=== PATIENT | female | born 1990 | race Two or more races ===

== ENCOUNTER 2023-03-15 12:52 | Outpatient (REF) | payer MEDICAID, OTHER, SELFPAY ==
[2023-03-15 16:13] LABS: MANUAL DIFF FLAG NO
[2023-03-15 16:26] LABS: Basophils Percent Auto 0.5 % (0-2); Eosinophils Absolute Auto 0.1 X10*3/uL (0.0-0.4); Eosinophils Percent Auto 1.6 % (0-4); Hematocrit 42.9 % (37.0-47.0); Hemoglobin 13.9 g/dl (12.0-16.0); Imm Gran Abs Auto 0.03 X10*3/uL (0.00-0.03); Imm Gran Pct Auto 0.5 % (0.0-0.4); Lymphocytes Absolute Auto 2.9 X10*3/uL (1.2-4.9); Lymphocytes Percent Auto 46.9 % (20-40); Mean Corpuscular HGB Conc 32.4 g/dl (31.0-35.0); Mean Corpuscular Hemoglobin 30.3 pg (27.0-33.0); Mean Corpuscular Volume 93.5 fL (80.0-98.0); Monocytes Absolute Auto 0.6 X10*3/uL (0.1-1.2); Neutrophils Absolute Auto 2.6 x10*3/uL (2.0-8.3); Neutrophils Percent Auto 41.5 % (45-73); Platelet Count 287 X10*3/uL (160-400); Red Blood Count 4.59 X10*6/uL (4.20-5.50); Red Cell Distribution Width 11.4 % (11.0-16.0); White Blood Count 6.2 X10*3/uL (4.8-10.8)
[2023-03-15 17:07] LABS: TSH reflex Free T4 0.74 uIU/mL (0.32-4.0)
[2023-03-15 17:09] LABS: Alanine Aminotransferase 36 U/L (0-31); Albumin Level 4.5 g/dL (3.5-5.0); Alkaline Phosphatase 77 U/L (39-117); Anion Gap 12 (12-20); Aspartate Amino Transferase 37 U/L (5-31); Bilirubin Total 0.6 mg/dL (0.0-1.0); Blood Urea Nitrogen 16 mg/dL (9-16); Calcium 9.6 mg/dL (8.4-10.2); Carbon Dioxide 24 mmol/L (22-29); Chloride 107 mmol/L (96-108); Estimated Glomerular Filt Rate > 60; Glucose Random 78 mg/dL (60-115); Potassium 3.9 mmol/L (3.3-5.1); Sodium 139 mmol/L (135-145); Total Protein 7.6 g/dL (6.5-8.0)
[2023-03-15 17:26] LABS: HCG Quantitative < 2 mIU/mL; Vitamin B12 794 pg/mL (200-900)
[2023-03-15 18:35] LABS: CT PCR NOT DETECTED (Not Detect.); NG PCR NOT DETECTED (Not Detect.)
[2023-03-16 08:56] LABS: HBS Num1 0.03 mIU/mL (0-7.99); HBc Num1 0.11 S/CO (0.00-0.79); HBsAGNum1 0.37 S/CO (0.00-0.99); Hepatitis B Core Antibody Nonreactive (Nonreactive); Hepatitis B Surface Antigen Negative (Negative); ~Hepatitis B Surface Antibody NONREACTIVE (Nonreactive)
== END 2023-03-15 12:53 | disposition home or self-care (01) ==
LOC: HO.HHCL 12:52
PROVIDERS: Visit Provider Student in an Organized Health Care Education/Training Program
DX: Z00.00 Encounter for general adult medical examination without abnormal findings (principal); Z11.3 Encounter for screening for infections with a predominantly sexual mode of transmission
CPT/HCPCS: 0353U; 80053; 82607; 82746; 84443; 84702; 85025; 86704; 86706; 87340

== ENCOUNTER 2023-03-15 13:20 | Outpatient (REF) | payer MEDICAID, OTHER, SELFPAY ==
--- NOTE | ~2023-03-15 | XR_ITS ---
EXAMINATION: XR CHEST CLINICAL INFORMATION: Positive tuberculosis test. COMPARISON: None available. TECHNIQUE: 2 views of the chest were obtained. FINDINGS: The lungs are well expanded. No focal consolidation. No pleural effusion. Cardiac silhouette is within normal limits. XR/XR chest 2V IMPRESSION: No acute abnormality.
== END 2023-03-15 13:21 | disposition home or self-care (01) ==
LOC: HO.HHCX 13:20
PROVIDERS: Visit Provider Registered Nurse
DX: R76.12 Nonspecific reaction to cell mediated immunity measurement of gamma interferon antigen response without active tuberculosis (principal)
CPT/HCPCS: 71046

== ENCOUNTER 2023-03-28 09:43 | Outpatient (REF) | payer MEDICAID, OTHER, SELFPAY ==
[2023-03-31 06:44] LABS: TS Negative Control Passed; TS Panel A 3; TS Panel B 4; TS Positive Control Passed; TSpotTB Negative (Negative)
== END 2023-03-28 09:44 | disposition home or self-care (01) ==
LOC: HO.LAB 09:43
PROVIDERS: PCP Student in an Organized Health Care Education/Training Program; Visit Provider Student in an Organized Health Care Education/Training Program
DX: Z00.00 Encounter for general adult medical examination without abnormal findings (principal)
CPT/HCPCS: 36415; 86481

== ENCOUNTER 2023-04-11 07:59 | Outpatient (REF) | payer MEDICAID, OTHER, SELFPAY ==
--- NOTE | 2023-04-11 | EMG_ITS ---
Please see scanned EMG / Nerve Conduction Report. MTDD
== END 2023-04-11 08:00 | disposition home or self-care (01) ==
LOC: HO.NEURO 07:59
PROVIDERS: PCP Student in an Organized Health Care Education/Training Program; Visit Provider Registered Nurse
DX: R20.0 Anesthesia of skin (principal); R20.2 Paresthesia of skin
CPT/HCPCS: 95860; 95885; 95907; 95913

== ENCOUNTER 2023-05-30 19:18 | Outpatient (REF) | payer MEDICAID, OTHER, SELFPAY | END 2023-05-30 19:19 | disposition home or self-care (01) | LOC: HO.HHCLNP 19:18 | PROVIDERS: Visit Provider Advanced Practice Midwife | DX: Z12.4 Encounter for screening for malignant neoplasm of cervix (principal); Z11.51 Encounter for screening for human papillomavirus (HPV) | CPT/HCPCS: 87624; 88142 ==

== ENCOUNTER 2023-08-15 09:37 | Outpatient (REF) | payer MEDICAID, OTHER, SELFPAY ==
[2023-08-15 11:18] LABS: MANUAL DIFF FLAG NO
[2023-08-15 11:47] LABS: Basophils Percent Auto 0.6 % (0-2); Eosinophils Absolute Auto 0.1 X10*3/uL (0.0-0.4); Eosinophils Percent Auto 1.8 % (0-4); Hematocrit 42.7 % (37.0-47.0); Imm Gran Abs Auto 0.01 X10*3/uL (0.00-0.03); Imm Gran Pct Auto 0.2 % (0.0-0.4); Lymphocytes Absolute Auto 2.5 X10*3/uL (1.2-4.9); Lymphocytes Percent Auto 50.5 % (20-40); Mean Corpuscular HGB Conc 32.8 g/dl (31.0-35.0); Mean Corpuscular Hemoglobin 30.2 pg (27.0-33.0); Mean Corpuscular Volume 92.2 fL (80.0-98.0); Mean Platelet Volume 8.9 fL (9.4-12.3); Monocytes Absolute Auto 0.5 X10*3/uL (0.1-1.2); Monocytes Percent Auto 10.8 % (2-11); Neutrophils Absolute Auto 1.8 x10*3/uL (2.0-8.3); Neutrophils Percent Auto 36.1 % (45-73); Platelet Count 273 X10*3/uL (160-400); Red Blood Count 4.63 X10*6/uL (4.20-5.50); Red Cell Distribution Width 11.4 % (11.0-16.0)
[2023-08-15 12:12] LABS: Alanine Aminotransferase 37 U/L (0-31); Albumin Level 4.4 g/dL (3.5-5.0); Alkaline Phosphatase 90 U/L (39-117); Anion Gap 12 (12-20); Aspartate Amino Transferase 27 U/L (5-31); Bilirubin Total 0.5 mg/dL (0.0-1.0); Blood Urea Nitrogen 11 mg/dL (9-16); Calcium 9.7 mg/dL (8.4-10.2); Carbon Dioxide 26 mmol/L (22-29); Chloride 105 mmol/L (96-108); Estimated Glomerular Filt Rate > 60; Glucose Random 108 mg/dL (60-115); Potassium 4.4 mmol/L (3.3-5.1); Sodium 139 mmol/L (135-145); Total Protein 7.7 g/dL (6.5-8.0)
== END 2023-08-15 09:38 | disposition home or self-care (01) ==
LOC: HO.HHCL 09:37
PROVIDERS: Visit Provider Student in an Organized Health Care Education/Training Program
DX: Z00.00 Encounter for general adult medical examination without abnormal findings (principal)
CPT/HCPCS: 36415; 80053; 85025

== ENCOUNTER 2024-03-19 18:41 | Outpatient (REF) | payer MEDICAID, OTHER, SELFPAY ==
[2024-03-20 16:40] LABS: H Pylori Breath Test Negative (Negative)
== END 2024-03-19 18:42 | disposition home or self-care (01) ==
LOC: HO.HHCLNP 18:41
PROVIDERS: Visit Provider Student in an Organized Health Care Education/Training Program
DX: K29.50 Unspecified chronic gastritis without bleeding (principal)
CPT/HCPCS: 83013

== ENCOUNTER 2024-04-29 09:36 | Outpatient (REF) | payer MEDICAID, OTHER, SELFPAY ==
[2024-04-29 11:37] LABS: Hematocrit 38.2 % (37.0-47.0); Hemoglobin 12.8 g/dl (12.0-16.0); Mean Corpuscular HGB Conc 33.5 g/dl (31.0-35.0); Mean Corpuscular Hemoglobin 30.9 pg (27.0-33.0); Mean Corpuscular Volume 92.3 fL (80.0-98.0); Mean Platelet Volume 8.8 fL (9.4-12.3); Platelet Count 287 X10*3/uL (160-400); Red Blood Count 4.14 X10*6/uL (4.20-5.50); Red Cell Distribution Width 11.9 % (11.0-16.0)
[2024-04-29 11:43] LABS: Estimated Average Glucose 108 mg/dL; Hemoglobin A1c % 5.4 % (<6.0)
[2024-04-29 11:55] LABS: Alanine Aminotransferase 16 U/L (0-31); Albumin Level 4.2 g/dL (3.5-5.0); Alkaline Phosphatase 71 U/L (39-117); Anion Gap 10 (12-20); Aspartate Amino Transferase 16 U/L (5-31); Bilirubin Total 0.4 mg/dL (0.0-1.0); Blood Urea Nitrogen 8 mg/dL (9-16); Calcium 9.5 mg/dL (8.4-10.2); Carbon Dioxide 24 mmol/L (22-29); Chloride 106 mmol/L (96-108); Cholesterol 156 mg/dL (<200); Estimated Glomerular Filt Rate > 60; Glucose Random 98 mg/dL (60-115); HDL Cholesterol 44 mg/dL (>40); LDL Cholesterol Calculated 99 mg/dL (<100); Sodium 136 mmol/L (135-145); Total Protein 7.2 g/dL (6.5-8.0); Triglycerides 68 mg/dL (<150)
[2024-04-29 12:16] LABS: HBS Num1 > 1000.00 mIU/mL (0-7.99); HBc Num1 0.19 S/CO (0.00-0.79); HBsAGNum1 0.26 S/CO (0.00-0.99); HIV AB/AG Nonreactive (Nonreactive); HIV Num 1 0.07 S/CO (0.00-0.99); Hepatitis B Core Antibody Nonreactive (Nonreactive); Hepatitis B Surface Antigen Negative (Negative); ~HepC Num1 0.09 S/CO (0.00-0.79); ~Hepatitis B Surface Antibody REACTIVE (Nonreactive); ~Hepatitis C Antibody Nonreactive (Nonreactive)
[2024-04-29 12:26] LABS: Syphilis Screen Nonreactive (Nonreactive); TSH reflex Free T4 0.35 uIU/mL (0.32-4.0)
[2024-04-29 13:13] LABS: CT PCR NOT DETECTED (Not Detect.); NG PCR NOT DETECTED (Not Detect.)
== END 2024-04-29 09:37 | disposition home or self-care (01) ==
LOC: HO.HHCL 09:36
PROVIDERS: Visit Provider Student in an Organized Health Care Education/Training Program
DX: Z00.00 Encounter for general adult medical examination without abnormal findings (principal)
CPT/HCPCS: 36415; 80053; 80061; 83036; 84443; 84702; 85027; 86704; 86706; 86780; 86803; 87340; 87389; 87491; 87591

== ENCOUNTER 2024-05-12 14:16 | Outpatient (REF) | payer MEDICAID, OTHER, SELFPAY ==
[2024-05-13 04:36] LABS: CT PCR NOT DETECTED (Not Detect.); NG PCR NOT DETECTED (Not Detect.)
[2024-05-13 11:24] LABS: Bacterial Vaginosis PCR NEGATIVE (Negative); Candida Group PCR DETECTED (Not Detect); Candida glab krusei PCR NOT DETECTED (Not Detect); Trichomonas vaginalis PCR NOT DETECTED (Not Detect)
== END 2024-05-12 14:17 | disposition home or self-care (01) ==
LOC: HO.HHCLNP 14:16
PROVIDERS: Visit Provider Internal Medicine
DX: R10.2 Pelvic and perineal pain (principal)
CPT/HCPCS: 0352U; 87491; 87591

== ENCOUNTER 2025-04-21 10:22 | Outpatient (REF) | payer MEDICAID, SELFPAY ==
--- OUTSIDE RECORDS SUMMARY | 2025-04-21 11:09 | XMS_ITS | Encounter Summary ---
Author Organization [employer] Address [address] [facility] 7 [place] [address] Care Team Providers Care Floor Representative Name Role Phone Laurie Strickland MD Primary Care Pro vider Reason for Visit * Reason Comments Med Refill Encounter Details Date Type Department Care Team ([facility] st Contact Info) Description 08/03/2024 Refill [facility] [address] [place], [place] [phone] Shannan Guzman MD [address] [place] [address] Social History Tobacco Use Types Packs/Day Years Used Date Smoking Tobacco: Never Passive Smoke Exposure: Never Smokeless Tobacco: Never Alcohol Use Standard Drinks/Week Comments Not Currently 0 (1 standard drink = 0.6 oz pur e alcohol) Depression Answer Date Recorded Patient Health Questionnaire-9 Score 5 05/10/2023 Housing Stability Answer Date Recorded What is your housing situation today? I do not have housing (Staying with others, in a hotel, in a detention, living outside on the street, on a beach, in a car, or in a park 06/04/[address] you li ve. Do you have problems with any of the following? I am not sure 06/04/2023 Food Insecurity Answer Date Recorded Within the past 12 months, y ou worried that your food would run out before you got money to buy more: Often true 06/19/2023 Within the past 12 months,th e food you bought just didn't last and you didn't have enough money to get more: Often true Transportation Answer Date Recorded In the past 12 months, has l ack of transportation kept you from medical appts, meetings, work or from getting things needed for daily living? No 06/19/2023 Utilities Answer Date Recorded In the past 12 months, has t he electric, gas, oil or water company threatened to shut off services in your home? I am not sure 06/19/2023 Depression Answer Date Recorded Patient Health Questionnaire-2 Score 1 05/10/2023 Comments Yes Sex and Gender Information Value Date Recorded Sex Assigned at Female 01/24/2023 2:17 PM EDT Legal Sex Female 2:13 PM EDT Gender Identity Female 01/24/2023 2:17 PM EDT Sexual Orientation Straight 03/15/2023 11 :11 AM EDT documented as of this encounter Plan of Treatment Upcoming Encounters Date Type Department Care Team (Late st Contact Info) Description 05/08/2025 10:00 AM EDT Office Visit [facility] [address] [place] [address] Laurie Strickland MD [address] [place] [address] 05/18/2025 9:00 AM EDT Clinical Support [facility] DIABETES/NUTRITION [address] [place] [address] Angela Yusuf, RD [address] [place] [address] 07/10/2025 10:30 AM EST Office Visit [facility] OPTOMETRY [address] [place] [address] Sandor, Nichole, OD [address] [place] [address] documented as of this encounter Visit Diagnoses Not on filedocumented in this encounter Additional Health Concerns Assessment Noted Time PHQ-9 Depression Total Score: 5 05/10/20 23 3:48 PM EDT documented as of this encounter Care Teams Floor Representative Relationship Specialty Start Date End Date Laurie Strickland MD [address] [place] [address] PCP - General Internal Medicine 03/15/23 documented as of this encounter
--- OUTSIDE RECORDS SUMMARY | 2025-04-21 11:09 | XMS_ITS | Encounter Summary ---
Author Organization [employer] Address [address] [place] [address] [place] [address] Care Team Providers Care Information Technology Security Manager Name Role Phone Laurie Strickland MD Primary Care Pro vider Reason for Visit * Reason Onset Date Comments Appointment Request 02/24/2025 Encounter Details Date Type Department Care Team ([facility] st Contact Info) Description 02/24/2025 Telephone [facility] [address] [place], [place] [phone] Laurie Strickland MD [address] [place] [address] Appointment Request Social History Tobacco Use Types Packs/Day Years Used Date Smoking Tobacco: Never Passive Smoke Exposure: Never Smokeless Tobacco: Never Alcohol Use Standard Drinks/Week Comments Not Currently 0 (1 standard drink = 0.6 oz pur e alcohol) Depression Answer Date Recorded Patient Health Questionnaire-9 Score 5 05/10/2023 Housing Stability Answer Date Recorded What is your housing situation today? I have car mobley 11/19/[address] you li ve. Do you have problems with any of the following? None of the above 11/19/2024 Food Insecurity Answer Date Recorded Within the past 12 months, y ou worried that your food would run out before you got money to buy more: Never True 11/19/2024 Within the past 12 months,th e food you bought just didn't last and you didn't have enough money to get more: Never True Transportation Answer Date Recorded In the past 12 months, has l ack of transportation kept you from medical appts, meetings, work or from getting things needed for daily living? Yes, it has kept me from medical appointments or getting medications. 11/19/2024 Utilities Answer Date Recorded In the past 12 months, has t he electric, gas, oil or water company threatened to shut off services in your home? No 11/19/2024 Depression Answer Date Recorded Patient Health Questionnaire-2 Score 1 05/10/2023 Internet Access Answer Date Recorded Internet Access Q1 Yes 11/19/2024 Internet Access Q2 Not on file 11/19/2024 Comments No Sex and Gender Information Value Date Recorded Sex Assigned at Female 01/24/2023 2:17 PM EDT Legal Sex Female 2:13 PM EDT Gender Identity Female 01/24/2023 2:17 PM EDT Sexual Orientation Straight 03/15/2023 11 :11 AM EDT documented as of this encounter Miscellaneous Notes * Telephone Encounter - Luke Vu - 02/24/2025 10:16 AM EDT TC from pt looking to schedule Pharmacist Critical Care visit documented in this encounter Plan of Treatment Upcoming Encounters Date Type Department Care Team (Late st Contact Info) Description 05/08/2025 10:00 AM EDT Office Visit [facility] [address] [place] [address] Laurie Strickland MD [address] [place] [address] 05/18/2025 9:00 AM EDT Clinical Support [facility] DIABETES/NUTRITION [address] [place] [address] Angela Yusuf, RD [address] [place] [address] 07/10/2025 10:30 AM EST Office Visit [facility] OPTOMETRY [address] [place] [address] Nichole Patten, OD [address] [place] [address] documented as of this encounter Visit Diagnoses Not on filedocumented in this encounter Additional Health Concerns Assessment Noted Time PHQ-9 Depression Total Score: 5 05/10/20 3:48 PM EDT documented as of this encounter Care Teams Information Technology Security Manager Relationship Specialty Start Date End Date Laurie Strickland MD [address] [place] [id number] PCP - General Internal Medicine 03/15/23 documented as of this encounter
--- OUTSIDE RECORDS SUMMARY | 2025-04-21 11:09 | XMS_ITS | Encounter Summary ---
Author Organization [employer] Address [address] [facility] 7t [place] [address] Care Team Providers Care Washer Meat Name Role Phone Laurie Strickland MD Primary Care Pro vider Encounter Details Date Type Department Care Team (Late st Contact Info) Description 10/22/2024 Orders Only [facility] [address] [place] [phone] Manjit Orr MD [address] [place], [place] [phone] Social History Tobacco Use Types Packs/Day Years [...] with others, in a hotel, in a senior living, living outside on the street, on a [...] Description 05/08/2025 10:00 AM EDT Office Visit [facility] MED[facility] [address] [place] [address] Laurie Strickland MD [address] [place] [address] 05/18/2025 9:00 AM EDT Clinical Support [facility] DIABETES/NUTRITION [address] [place] [address] [place] [address] 07/10/2025 10:30 AM EST Office Visit [facility] OPTOMETRY [address] [place] [address] Nichole Patten, OD [address] [place] [address] documented as of this encounter Visit Diagnoses Not on filedocumented in this encounter Additional Health Concerns Assessment Noted Time PHQ-9 Depression Total Score: 5 05/10/20 3:48 PM EDT documented as of this encounter Care Teams Washer Meat Relationship Specialty Start Date End Date Laurie Strickland MD [address] [place] [address] PCP - General Internal Medicine 03/15/23 documented as of this encounter
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
--- OUTSIDE RECORDS SUMMARY | 2025-04-21 11:09 | XMS_ITS | Clinical Summary ---
Author Organization [facility] Address [address] [place] [address] Care Team Providers Care Logistics Supply Officer Name Role Phone Laurie Strickland Primary Care Provider [phone]- [phone] Allergies No known active allergies Medications No known medications Social History Tobacco Use Types Packs/Day Years Used Date Smoking Tobacco: Never Smokeless Tobacco: Never Tobacco Cessation:Counseling Given: Not Answered Comments Unknown Sex and Gender Information Value Date Recorded Sex Assigned at Female 05/19/2024 10:44 AM EDT Legal Sex Female 3:43 PM EST Gender Identity Not on file Sexual Orientation Not on file Plan of Treatment Health Maintenance Due Date Last Done Comments HPV and Pap Smear 1990 Varicella Vaccines (1 of 2 - 13+ 2-dose series) 2003 DTaP,Tdap,and Td Vaccines (1 - Tdap) 2012 Hepatitis B Vaccines (3 of 3 - 19+ 3-dose series) 03/10/2024 01/14/2024, 05/10/2023 COVID-19 Vaccine (1 - 2023-2 5 season) 2024 Alcohol/Substance Use Screening 08/27/2024 Depression Screening and Follow-Up 08/27/2024 Social Drivers of Health Annual Screening 08/27/2024 Influenza Vaccine (#1) 2025 05/12/2024 Cervical Cancer Screening 05/30/2026 Pap Smear 05/30/2026 05/30/2023 RSV Vaccine (60+ years old and patients) (1 - 1-dose 75+ series) 2065 HIV Screening Completed 04/29/2024, 04/29/2024, 01/24/2023 Hepatitis C Screening Completed 04/29/2024 Pneumococcal Vaccine: Pediatric (0-5 Years) and At-Risk Patients (6-50 Years) Aged Out No longer eligible based on patient's age to complete this topic Insurance [facility] Care Teams Logistics Supply Officer Relationship Specialty Start Date End Date Laurie Strickland PCP - General 08/28/23
--- OUTSIDE RECORDS SUMMARY | 2025-04-21 11:09 | XMS_ITS | Encounter Summary ---
Author Organization [employer] Address [address] [place] [address] [place] [address] Care Team Providers Care Director Of Analytical Development Name Role Phone Laurie Strickland MD Primary Care Pro vider Reason for Visit * Reason Onset Date Comments Pt1 01/27/2025 Encounter Details Date Type Department Care Team ([facility] st Contact Info) Description 01/27/2025 Telephone [facility] MEDICINE [address] [place], [place] [phone] Laurie Strickland MD [address] [place] [address] Pt1 Social History Tobacco Use Types Packs/Day Years [...] encounter Miscellaneous Notes * Telephone Encounter - Tamela Villanueva - 01/27/2025 10:30 AM EDT Tc from pt requesting to update home address for PT1 Address: [address] [place] [address] documented in this encounter Plan of Treatment Upcoming Encounters Date Type Department Care Team (Late st Contact Info) Description 05/08/2025 10:00 AM EDT Office Visit [facility] MEDICINE [address] [place] [address] Laurie Strickland MD [address] [place] [address] 05/18/2025 9:00 AM EDT Clinical Support [facility] DIABETES/NUTRITION [address] [place] [address] [place] [address] 07/10/2025 10:30 AM EST Office Visit [facility] OPTOMETRY [address] [place] [address] Nichole Patten, OD [address] [place] [address] documented as of this encounter Visit Diagnoses Not on filedocumented in this encounter Additional Health Concerns Assessment Noted Time PHQ-9 Depression Total Score: 5 05/10/20 3:48 PM EDT documented as of this encounter Care Teams Director Of Analytical Development Relationship Specialty Start Date End Date Laurie Strickland MD [address] [place] [address] PCP - General Internal Medicine 03/15/23 documented as of this encounter
--- OUTSIDE RECORDS SUMMARY | 2025-04-21 11:09 | XMS_ITS | Encounter Summary ---
Author Organization [employer] Address [address] [facility] 7t [place] [address] Care Team Providers Care Customer Service Assistant Name Role Phone Laurie Strickland MD Primary Care Pro vider Encounter Details Date Type Department Care Team (Latest Contact Info) Description 04/21/2025 Travel Social History Tobacco Use Types Packs/Day Years [...] Description 05/08/2025 10:00 AM EDT Office Visit [facility] MEDICINE [address] [place] [address] Laurie Strickland MD [address] [place] [address] 05/18/2025 9:00 AM EDT Clinical Support [facility] DIABETES/NUTRITION [address] [place] [address] Angela Yusuf, RD [address] [place] [address] 07/10/2025 10:30 AM EST Office Visit [facility] OPTOMETRY [address] [place] [address] Sandor, Nichole, OD [address] [place] [address] documented as of this encounter Visit Diagnoses Not on filedocumented in this encounter Additional Health Concerns Assessment Noted Time PHQ-9 Depression Total Score: 13 025 9:42 AM EDT documented as of this encounter Care Teams Customer Service Assistant Relationship Specialty Start Date End Date Laurie Strickland MD [address] [place] [address] PCP - General Internal Medicine 03/15/23 documented as of this encounter
--- OUTSIDE RECORDS SUMMARY | 2025-04-21 11:09 | XMS_ITS | Encounter Summary ---
Author Organization [employer] Address [address] [place] [address] [place] [address] Care Team Providers Care Earth Science Teacher Name Role Phone Laurie Strickland MD Primary Care Pro vider Reason for Visit * Reason Onset Date Comments Appointment Request 02/06/2025 Encounter Details Date Type Department Care Team ([facility] st Contact Info) Description 02/06/[address] [facility] MEDICINE [address] [place], [place] [phone] Laurie Strickland MD [address] [place] [address] Appointment Request Social History Tobacco Use Types [...] encounter Miscellaneous Notes * Telephone Encounter - Georges Graham - 02/06/2025 9:54 AM EDT Tc from pt requesting to reschedule land conservation specialist appt. Please contact pt at [phone]. (French Speaker) documented in this encounter Plan of Treatment Upcoming Encounters Date Type Department Care Team (Late st Contact Info) Description 05/08/2025 10:00 AM EDT Office Visit [facility] MEDICINE [address] [place] [address] Laurie Strickland MD [address] [place] [address] 05/18/2025 9:00 AM EDT Clinical Support [facility] DIABETES/NUTRITION [address] [place] [address] [place] [address] 07/10/2025 10:30 AM EST Office Visit [facility] OPTOMETRY [address] [place] [address] Nichole Patten, OD [address] [place] [address] documented as of this encounter Visit Diagnoses Not on filedocumented in this encounter Additional Health Concerns Assessment Noted Time PHQ-9 Depression Total Score: 5 05/10/20 3:48 PM EDT documented as of this encounter Care Teams Earth Science Teacher Relationship Specialty Start Date End Date Laurie Strickland MD [address] [place] [address] PCP - General Internal Medicine 03/15/23 documented as of this encounter
--- OUTSIDE RECORDS SUMMARY | 2025-04-21 11:09 | XMS_ITS ---
Author Organization [employer] Address [address] [place] [address] 7 [place] [address] Care Team Providers Care Corncob Pipe Supervisor Name Role Phone Laurie Strickland MD Primary Care Pro vider C3 CM High Risk Maternity Status:Enrolled (Active) Start date:11/19/2024 Enrollment date:12/18/2024 Enrollment reason:ADT Feed Overview ADT (HRM) [place] [facility] [place]. Case Team Name Relationship Phone Anita Lawson(Responsible Staff) Registered Nurse [phone] Continued Care and Services Coordination
--- OUTSIDE RECORDS SUMMARY | 2025-04-21 11:09 | XMS_ITS | Encounter Summary ---
Author Organization [facility] Address [address] [place] [address] Care Team Providers Care Research Advisor Name Role Phone Laurie Strickland Primary Care Provider [phone]- [phone] Encounter Details Date Type Department Care Team (Latest Contact Info) Description 08/28/2023 Transcribe Orders [facility] Physician Referral Services [address] [place] [address] Laurie Strickland [address] [place] [address] Numbness and tingling in both hands (Primary Dx) Social History Tobacco Use Types Packs/Day Years Used Date Smoking Tobacco: Never Assessed Comments Unknown Sex and Gender Information Value Date Recorded Sex Assigned at Female 05/19/2024 10:44 AM EDT Legal Sex Female 3:43 PM EST Gender Identity Not on file Sexual Orientation Not on file documented as of this encounter Plan of Treatment Not on file documented as of this encounter Visit Diagnoses Diagnosis Numbness and tingling in both hands- Primary documented in this encounter Care Teams Research Advisor Relationship Specialty Start Date End Date Laurie Strickland PCP - General 08/28/23 documented as of this encounter
[2025-04-21 11:12] LABS: Hematocrit 39.4 % (37.0-47.0); Hemoglobin 12.9 g/dl (12.0-16.0); Mean Corpuscular HGB Conc 32.7 g/dl (31.0-35.0); Mean Corpuscular Hemoglobin 30.8 pg (27.0-33.0); Mean Corpuscular Volume 94.0 fL (80.0-98.0); NRBC Abs Auto 0.000 X10*3/uL (0.0-0.012); NRBC Pct Auto 0.0 /100WBC (0.0-0.2); Platelet Count 250 X10*3/uL (160-400); Red Blood Count 4.19 X10*6/uL (4.20-5.50); White Blood Count 4.8 X10*3/uL (4.8-10.8)
[2025-04-21 11:27] LABS: Hemoglobin A1C 129.7563 umol/L; Total Hemoglobin (HGBA1C) 3396.9090 umol/L
[2025-04-21 12:12] LABS: HBsAGNum1 0.38 S/CO (0.00-0.99); HIV Num 1 0.07 S/CO (0.00-0.99); Hepatitis B Surface Antigen Negative (Negative); Syphilis Screen Nonreactive (Nonreactive); ~HepC Num1 0.09 S/CO (0.00-0.79); ~Hepatitis C Antibody Nonreactive (Nonreactive)
[2025-04-21 12:15] LABS: Alanine Aminotransferase 57 U/L (0-31); Albumin Level 4.5 g/dL (3.5-5.0); Alkaline Phosphatase 100 U/L (39-117); Anion Gap 11 (12-20); Aspartate Amino Transferase 35 U/L (5-31); Blood Urea Nitrogen 13 mg/dL (9-16); Calcium 9.2 mg/dL (8.4-10.2); Carbon Dioxide 25 mmol/L (22-29); Chloride 108 mmol/L (96-108); Cholesterol 200 mg/dL (<200); Estimated Glomerular Filt Rate > 60; HDL Cholesterol 37 mg/dL (>40); Potassium 3.9 mmol/L (3.3-5.1); Sodium 140 mmol/L (135-145); Total Protein 7.2 g/dL (6.5-8.0); Triglycerides 132 mg/dL (<150)
[2025-04-21 12:26] LABS: Folate 12.6 ng/mL (> or = 4.0); Vitamin B12 1011 pg/mL (200-900)
== END 2025-04-21 10:23 | disposition home or self-care (01) ==
LOC: HO.HHCL 10:22
PROVIDERS: PCP Student in an Organized Health Care Education/Training Program; Visit Provider Student in an Organized Health Care Education/Training Program
DX: Z00.00 Encounter for general adult medical examination without abnormal findings (principal); Z11.59 Encounter for screening for other viral diseases; Z11.4 Encounter for screening for human immunodeficiency virus [HIV]
CPT/HCPCS: 36415; 80053; 80061; 82607; 82746; 83036; 84443; 85027; 86780; 86803; 87340; 87389

== ENCOUNTER 2025-05-13 07:34 | Outpatient (REF) | payer MEDICAID, SELFPAY ==
--- OUTSIDE RECORDS SUMMARY | 2025-05-08 10:00 | XMS_ITS | Encounter Summary ---
Author Organization [employer] Address [address] [place] [address] Care Team Providers Care Sales Performance Manager Name Role Phone Laurie Strickland MD Primary Care Pro vider Reason for Referral * Consultation (Routine) - Closed Specialty Diagnoses / Procedures Referred By Contac t Referred To Contact Physical Therapy Diagnoses Low back pain without sciatica, unspecified back pain laterality, unspecified chronicity Laurie Strickland MD [address] [place] [address] Phone: tel: fax: [facility] [address] [place] [address] Phone: tel: fax: Referral ID Status Reason Start Date Expiration Date V isits Requested Visits Authorized [id number] Closed Specialty Services Required 05/08/2025 05/08/2026 20 20 * Consultation (Routine) - Authorized Specialty Diagnoses / Procedures Referred By Contac t Referred To Contact Family Medicine Diagnoses Skin lesion Laurie Strickland MD [address] [place] [address] Phone: tel: fax: Referral ID Status Reason Start Date Expiration Date Visits Requested Visits Authorized [id number] Authorized Specialty Services Required 05/08/2025 05/08/2026 1 1 Encounter Details Date Type Department Care Team (Late st Contact Info) Description 05/08/2025 10:00 AM EDT Office Visit [facility] MEDICINE [address] [place], [place] [phone] Laurei Strickland MD [address] [place], [place] [phone] Skin lesion (Primary Dx); Low back pain without sciatica, unspecified back pain laterality, unspecified chronicity; Gestational diabetes mellitus (GDM), antepartum, gestational diabetes method of control unspecified; RUQ pain; Health care maintenance; Dysgeusia; Hypopigmented skin lesion Social History Tobacco Use Types Packs/Day Years [...] your housing situation today? I have car itz 11/19/[address] you li [...] AM EDT documented as of this encounter Last Filed Vital Signs Vital Sign Reading Time Taken Comments Blood Pressure 100/78 05/08/2025 9:57 AM EDT Pulse 99 05/08/2025 9:57 AM EDT Temperature 36.1 C (96.9 F) 05/08/2025 9:57 AM EDT Respiratory Rate 20 05/08/2025 9:57 AM EDT Oxygen Saturation 99% 05/08/2025 9:57 AM EDT Inhaled Oxygen Concentration - - Weight 59.4 kg (131 lb) 05/08/2025 9:57 AM EDT Height 152.4 cm (5') 05/08/2025 9:57 AM EDT Body Mass Index 25.58 05/08/2025 9:57 AM EDT documented in this encounter Progress Notes * Laurie Siddiqui MD - 05/08/2025 10:00 AM EDT Subjective Patient ID: Doreen Lloyd is a 34 y.o. female who presents for f up apt HPI 34 [address] o [address] with PMX of Anxiety and depression,CTS,Gestational DM Comes for f up apt -Reports ongoing on and off RUQ pain is more constant colicky ,can last for 90 min , has noted sometimes associated with food , and cheese specially .ongoing GERD symptoms and dysgeusia -Lower back pain does no radiated no neurologic complaints ----- -LMP: 04/15/25 , currently s/p delivery 5 mo ago ------- Assessment and Plan: Health care maintenance -Annual exam done 02/2025 -Quantiferon 02/2023 Neg -pap smear: 05/2023 Neg/HPV neg- to repeat in 5 years -contraception :s/p salpingectomy after C section in 10/2024 -vaccines: s/p Tdap 08/2024 COVID 19x3 per pt ,Flu vaccine 04/2024 ,hep B s/p 3 doses. -advised for COVID 19 and Flu vaccine in 04/2025 ----- -referred today to ophthalmology for decrease vision -referred to [facility] eye care --has apt on 06/2025 Bilateral hand numbness bl hand pain up to elbows w no joint swelling Numbness and tingling in both hands tinnel + in left hand not improving w wrist brace -better now since inj -EMG 03/2023 : Mild bilateral CTS syndrome -referred to hand surgeon ---S/P wrist inj in 05/2024 ,states CTS and chronic right shoulder pain improved after injection Depression with anxiety Pt w depression/anxiety and possible PTSD PHQ9 :14<---5 , JAMILA 7<--19 ,denies SI ,no cody ,no hallucinations -F w psychiatrist by phone and therapist--both in [place] ---f w psychiatrist 05/12/25 Gastritis/GERD H pylori UBT 02/2024 neg -life style changes advised,weight loss, decrease heavy meals at night, HOB elevation -trial w maalox TID not helped -will try w famotidine 20 mg BID PRN -pt on digestive enzymes ( Digest basic per her sub master) Gestational DM -03/2025 Hb1AC 5.6 -advised for improve diet, and activity as well discussed that prolong have a protective effect and if possible advised to keep past a year -sub master 05/18/25-seen last 04/20 -will repeat hb1AC in 6 mo -aprox 10/2025 If stable then yearly Skin rash Reports having worsening hypopigmented lesions and itching in her back,chest and arms and slight inlegs ,no lesions in palms Syphilis test was neg 04/2024, Rash is chronic and appears tinea versicolor for which I prescribed in the past ketoconazole shampoo but pt was not able to complete due to . Tried Ciclopirox topical BID w no improvement -[facility] derm referred today to [facility] for other possible dx Dysgeusia Reports that after delivery is noticing tongue feels have burning sensation described as well as metalic taste worsen after some meals denies any neurologic symptoms Dysgeusia can be seen in but should get better in Noted possible mild irritation in tongue ,pt denies recent ATB Denies taking new meds states mainly prenatals -same since beginning of and no new meds to consider as possible cause --states after tried nystatin did not notice improvement ,thinks after doing dietary changes did improved and seems associated w GERD so possibly is the cause -management of GERD as in GERD problem -if no improvement at next apt will do further workup w CBC,ESR,CRP,Chem,TSH,ARIANNA as well will need to eval clinically for Sj??gren's syndrome and if present concern will do antibodies to Ro/SSA and LA/SSB , less likely but other possible etiologies to consider are Measurement of lead, arsenic, and other heavy metals , there is no obvious glossitis but also vit B12 level and Zinc levels RUQ abd pain -04/21/2025 AST 35,ALT 57, LDL 137, HDL 37, total ch 200 , vit B 12 1.1011 -denies taking extra vit B12 -repeat fasting lipids and chem ,vit B12 in 3 mo -ordede today -RUQ abd US ordered to r/o cholelithiasis--apt 05/13/25 -alarm signs and symptoms Lower back pain Lowe back pain does no radiated no neuro symptoms -tylenol PRN -referred for PT referred today ,states trying exercise at home but not improving no alarm symptoms Review of Systems -ongoing RUQ pain -lower back pain Objective BP 100/78 (BP Location: Right arm, Patient Position: Sitting, BP Cuff Size: Adult) Pulse 99 Temp 96.9 ??F (36.1 ??C) (Temporal) Resp 20 Ht 5' (1.524 m) Wt 131 lb (59.4 kg) SpO2 99% BMI 25.58 kg/m?? Physical Exam Constitutional: General: She is not in acute distress. Appearance: Normal appearance. Musculoskeletal: General: Tenderness present. Comments: Lower back tenderness in paraspinal points no vertebral point tenderness LE strength wnl Neurological: General: No focal deficit present. Mental Status: She is alert. Assessment/Plan Diagnoses and all orders for this visit: Skin lesion - Referral to [facility] Derm Skin Adult; Future - Comprehensive Metabolic Panel; Future - Lipid Panel, Standard; Future - Vitamin B12 (Cobalamin) and Folate Panel, Serum; Future Low back pain without sciatica, unspecified back pain laterality, unspecified chronicity - Referral to Physical Therapy; Future Gestational diabetes mellitus (GDM), antepartum, gestational diabetes method of control unspecified RUQ pain Health care maintenance Dysgeusia Hypopigmented skin lesion Other orders - Vit-Fe Fumarate-FA ( Plus) 27-1 MG tablet; One tablet by mouth daily - famotidine (Pepcid) 20 MG tablet; Take 1 tablet (20 mg) by mouth if needed in the morning and at bedtime for heartburn. documented in this encounter Plan of Treatment Upcoming Encounters Date Type Department Care Team (Late st Contact Info) Description 05/18/2025 9:00 AM EDT Clinical Support [facility] DIABETES/NUTRITION [address] [place] [address] Angela Yusuf, RD [address] [place] [address] 07/10/2025 10:30 AM EST Office Visit [facility] OPTOMETRY [address] [place] [address] Sandor, Nichole, OD [address] [place] [address] Scheduled Orders Name Type Priority Associated Diagnoses Orde r Schedule Comprehensive Metabolic Panel Lab Routine Skin lesion Expected: 08/07/2025 (Approximate), Expires: 05/08/2026 Lipid Panel, Standard Lab Routine Skin lesion Expected: 08/07/2025 (Approximate), Expires: 05/08/2026 Vitamin B12 (Cobalamin) and Folate Panel, Serum Lab Routine Skin lesion Expected: 08/07/2025 (Approximate), Expires: 05/08/2026 Scheduled Referrals Name Type Priority Associated Diagnoses Orde r Schedule Referral to [facility] Derm Skin Adult Outpatient Referral Routine Skin lesion Expected: 05/08/2025 (Approximate), Expires: 05/08/2026 Referral to Physical Therapy Outpatient Referral Routine Low back pain without sciatica, unspecified back pain laterality, unspecified chronicity Expected: 05/08/2025 (Approximate), Expires: 05/08/2026 documented as of this encounter Visit Diagnoses Diagnosis Skin lesion- Primary Unspecified disorder of skin and subcutaneous tissue Low back pain without sciatica, unspecified back pain laterality, unspecified chronicity Gestational diabetes mellitus (GDM), antepartum, gestational diabetes method of control unspecified RUQ pain Abdominal pain, right upper quadrant Health care maintenance Dysgeusia Disturbances of sensation of smell and taste Hypopigmented skin lesion documented in this encounter Additional Health Concerns Assessment Noted Time PHQ-9 Depression Total Score: 13 025 9:42 AM EDT documented as of this encounter Care Teams Sales Performance Manager Relationship Specialty Start Date End Date Laurie Strickland MD [address] [place] [address] PCP - General Internal Medicine 03/15/23 documented as of this encounter
--- NOTE | ~2025-05-13 | US_ITS ---
EXAMINATION: US ABDOMEN COMPLETE CLINICAL INFORMATION: Right upper quadrant abdominal pain.. COMPARISON: None available. TECHNIQUE: Real-time ultrasound of the abdomen using grayscale technique. FINDINGS: PANCREAS: No peripancreatic fluid collections. ABDOMINAL AORTA: The proximal, mid, and distal segments are normal in caliber. INFERIOR VENA CAVA: Visualized portions are normal. LIVER: Liver measures 19 cm. Increased echotexture. No nodular surface. No gross solid or cystic lesion. No intrahepatic biliary ductal dilatation. GALLBLADDER: Gallbladder is fluid-filled nondistended. No pericholecystic fluid collection or gallbladder wall thickening. COMMON BILE DUCT: 3 mm.. RIGHT KIDNEY: 10 cm. Normal echotexture. Normal renal cortical thickness. No hydronephrosis. No gross solid or cystic lesion. . LEFT KIDNEY: 10 cm. Normal echotexture. Normal renal cortical thickness. No hydronephrosis. No gross solid or cystic lesion.. SPLEEN: 10 cm. No focal lesion.. FREE FLUID: None. US/US abdomen complete IMPRESSION: Hepatomegaly and steatosis. No cholelithiasis or choledocholithiasis. No hydronephrosis. No ascites. Electronically signed by: Rancho Reveles MD 05/13/2025 09:59 AM EDT
--- OUTSIDE RECORDS SUMMARY | 2025-05-13 07:36 | XMS_ITS | Encounter Summary ---
Author Organization [facility] Address [address] [place] [address] Care Team Providers Care Baker Doughnut Name Role Phone Laurie Strickland Primary Care Provider +1- [phone] Encounter Details Date Type Department Care Team (Latest Contact Info) Description 08/28/2023 Transcribe Orders [facility] Physician Referral Services [address] [place] [address] Laurie Strickland [address] [place] [address] Numbness and tingling in both hands (Primary [...] Primary documented in this encounter Care Teams Baker Doughnut Relationship Specialty Start Date End Date Laurie Strickland PCP - General 08/28/23 documented as of this encounter
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
--- OUTSIDE RECORDS SUMMARY | 2025-05-13 07:36 | XMS_ITS | Encounter Summary ---
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 documented in this encounter Plan of Treatment Upcoming Encounters Date Type Department Care Team (Late st Contact Info) Description 05/18/2025 9:00 AM EDT Clinical Support [facility] DIABETES/NUTRITION [address] [place] [address] Angela Yusuf, RAFFAELE [address] [place] [phone] 07/10/2025 10:30 AM EST Office Visit [facility] OPTOMETRY [address] [place] [address] Nichole Patten, OD [address] [place] [address] documented as of this encounter Visit Diagnoses Not on filedocumented in this encounter Additional Health Concerns Assessment Noted Time PHQ-9 Depression Total Score: 5 05/10/20 23 3:48 PM EDT documented as of this encounter Care Teams Acetylene Operator Relationship Specialty Start Date End Date Laurie Strickland MD [address] [place] [address] PCP - General Internal Medicine 03/15/23 documented as of this encounter
--- OUTSIDE RECORDS SUMMARY | 2025-05-13 07:36 | XMS_ITS | Encounter Summary ---
Author Organization [employer] Address [address] [place] [address] [place] [address] Care Team Providers Care Metal Wire Coating Operator Name Role Phone Laurie Strickland MD Primary Care Pro vider Reason for Visit * Reason Onset Date Comments Appointment Request 02/06/2025 Encounter Details Date Type Department Care Team ([facility] st Contact Info) Description 02/06/2025 Telephone [facility] MEDICINE [address] [place], [place] [phone] Laurie Strickland MD [address] [place] [address] Appointment Request Social History Tobacco Use Types [...] Miscellaneous Notes * Telephone Encounter - Georges Santos - 02/06/2025 9:54 AM EDT Tc from pt 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 Please contact pt at [phone]. (Greek Speaker) documented in this encounter Plan of Treatment Upcoming Encounters Date Type Department Care Team (Late st Contact Info) Description 05/18/2025 9:00 AM EDT Clinical Support [facility] DIABETES/NUTRITION [address] [place] [address] Angela Yusuf, RD [address] [place] [address] 07/10/2025 10:30 AM EST Office Visit [facility] OPTOMETRY [address] [place] [address] Sandor, Nichole, OD [address] [place] [address] documented as of this encounter Visit Diagnoses Not on filedocumented in this encounter Additional Health Concerns Assessment Noted Time PHQ-9 Depression Total Score: 5 05/10/20 23 3:48 PM EDT documented as of this encounter Care Teams Metal Wire Coating Operator Relationship Specialty Start Date End Date Laurie Strickland MD [address] [place] [address] PCP - General Internal Medicine 03/15/23 documented as of this encounter
--- OUTSIDE RECORDS SUMMARY | 2025-05-13 07:36 | XMS_ITS ---
Author Organization [employer] Address [address] [place] [address] 7 [place] [address] Care Team Providers Care Risk Reduction Counselor Name Role Phone Lauire Strickland MD Primary Care Pro vider C3 CM High Risk Maternity Status:Enrolled (Active) Start date:11/19/2024 Enrollment date:12/18/2024 Enrollment reason:ADT Feed Overview ADT (HRM) Pt [place] [facility] [place]. Case Team Name Relationship Phone Anita Lawson(Responsible Staff) Registered Nurse [phone] Continued Care and Services Coordination
--- OUTSIDE RECORDS SUMMARY | 2025-05-13 07:36 | XMS_ITS | Encounter Summary ---
Author Organization [employer] Address [address] [place] [address] [place] [address] Care Team Providers Care Way Inspector Name Role Phone Laurie Strickland MD Primary Care Pro vider Reason for Visit * Reason Comments Care Coordination ALESSIO/MUMTAZ Batista#1- Appt reminder-ABDOMEN ULTRASOUND Encounter Details Date Type Department Care Team (Latest Contact Info) Description 05/12/2025 Patient Outreach [facility] MEDICINE [address] [place] [address] Laurie Strickland MD [address] [place] [address] Care Coordination (MUMTAZ Vargas#1- Appt reminder-ABDOMEN ULTRASOUND) Social History Tobacco Use Types Packs/Day Years [...] AM EDT documented as of this encounter Progress Notes * Kandice Villarreal - 05/12/2025 4:42 PM EDT CHW Kandice Villarreal placed outbound call to patient in regards to remind patient of upcoming appt. No answer. CHW LVM introducing herself calling from [facility], reminding patient fpr tomorrow 05/13/25 8am [facility] for ultrasound abdomen. and address not confirmed. documented in this encounter Plan of Treatment Upcoming Encounters Date Type Department Care Team (Late st Contact Info) Description 05/18/2025 9:00 AM EDT Clinical Support [facility] DIABETES/NUTRITION [address] [place], [place] [phone] Angela Yusuf, RAFFAELE [address] [place] [address] 07/10/2025 10:30 AM EST Office Visit [facility] OPTOMETRY [address] [place], [place] [phone] Nichole Patten, OD [address] [place] [address] documented as of this encounter Visit Diagnoses Not on filedocumented in this encounter Additional Health Concerns Assessment Noted Time PHQ-9 Depression Total Score: 13 03/20/ 025 9:42 AM EDT documented as of this encounter Care Teams Way Inspector Relationship Specialty Start Date End Date Laurie Strickland MD [address] [place] [address] PCP - General Internal Medicine 03/15/23 documented as of this encounter
--- OUTSIDE RECORDS SUMMARY | 2025-05-13 07:36 | XMS_ITS | Encounter Summary ---
Author Organization [employer] Address [address] [facility] 7 [place] [address] Care Team Providers Care Buffing Wheel Former Automatic Name Role Phone Laurie Strickland MD Primary Care Pro vider Reason for Visit * Reason Comments Med Refill Encounter Details Date Type Department Care Team ([facility] st Contact Info) Description 08/03/2024 Refill [facility] MEDICINE [address] [place], [place] [phone] Shannan Guzman MD [address] [place] [address] Social History Tobacco Use Types Packs/Day Years [...] with others, in a hotel, in a long term, living outside on the street, on a [...] Description 05/18/2025 9:00 AM EDT Clinical Support [facility] DIABETES/NUTRITION [address] [place] [address] [place] [address] 07/10/2025 10:30 AM EST Office Visit [facility] OPTOMETRY [address] [place], [place] [phone] Nichole Patten, SEBASTIÁN [address] [place] [address] documented as of this encounter Visit Diagnoses Not on filedocumented in this encounter Additional Health Concerns Assessment Noted Time PHQ-9 Depression Total Score: 5 05/10/20 3:48 PM EDT documented as of this encounter Care Teams Buffing Wheel Former Automatic Relationship Specialty Start Date End Date Laurie Strickland MD [address] [place], [place] [phone] PCP - General Internal Medicine 03/15/23 documented as of this encounter
--- OUTSIDE RECORDS SUMMARY | 2025-05-13 07:36 | XMS_ITS | Encounter Summary ---
Author Organization [employer] Address [address] [facility] 7t [place] [address] Care Team Providers Care Diplomatic Interpreter Name Role Phone Laurie Strickland MD Primary Care Pro vider Encounter Details Date Type Department Care Team (Latest Contact Info) Description 05/08/2025 Travel Social History Tobacco Use Types Packs/Day [...] 05/18/2025 9:00 AM EDT Clinical Support [facility] DIABETES/NUTRITION [address] [place] [address] Angela Yusuf, RAFFAELE [address] [place] [address] 07/10/2025 10:30 AM EST Office Visit [facility] OPTOMETRY [address] [place] [address] Sandor, Nichole, OD [address] [place] [address] documented as of this encounter Visit Diagnoses Not on filedocumented in this encounter Additional Health Concerns Assessment Noted Time PHQ-9 Depression Total Score: 13 025 9:42 AM EDT documented as of this encounter Care Teams Diplomatic Interpreter Relationship Specialty Start Date End Date Laurie Strickland MD [address] [place] [address] PCP - General Internal Medicine 03/15/23 documented as of this encounter
--- OUTSIDE RECORDS SUMMARY | 2025-05-13 07:36 | XMS_ITS | Clinical Summary ---
Author Organization [facility] Address [address] [place] [address] Care Team Providers Care Financial Representative Name Role Phone Laurie Strickland Primary Care Provider [phone] Allergies No known active allergies Medications No [...] - 19+ 3-dose series) 03/10/2024 01/14/2024, 05/10/2023 Alcohol/Substance Use Screening 08/27/2024 Depression Screening and Follow-Up 08/27/2024 Social Drivers of Health Annual Screening 08/27/2024 COVID-19 Vaccine (1 - 2023-2 5 season) 2025 Influenza Vaccine (#1) 2025 05/12/2024 Cervical Cancer Screening 05/30/2026 Pap Smear 05/30/2026 05/30/2023 RSV Vaccine (60+ years old and patients) (1 - 1-dose 75+ series) 2065 HIV Screening Completed 04/29/2024, 04/29/2024, 01/24/2023 Hepatitis C Screening Completed 04/29/2024 Pneumococcal Vaccine: Pediatric (0-5 Years) and At-Risk Patients (6-50 Years) Aged Out No longer eligible based on patient's age to complete this topic Insurance [facility] Care Teams Financial Representative Relationship Specialty Start Date End Date Laurie Strickland PCP - General 08/28/23
--- OUTSIDE RECORDS SUMMARY | 2025-05-13 07:36 | XMS_ITS | Encounter Summary ---
Author Organization [employer] Address [address] [facility] 7t [place] [address] Care Team Providers Care Paste Up Copy Camera Operator Name Role Phone Laurie Strickland MD Primary Care Pro vider Encounter Details Date Type Department Care Team (Late st Contact Info) Description 10/22/2024 Orders Only [facility] [address] [place] [phone] Manjit Orr MD [address] [place], [place] [phone] Social History Tobacco Use Types Packs/Day Years [...] with others, in a hotel, in a usp, living outside on the street, on a [...] Description 05/18/2025 9:00 AM EDT Clinical Support [facility] DIABETES/NUTRITION [address] [place] [address] [place] [address] 07/10/2025 10:30 AM EST Office Visit [facility] OPTOMETRY [address] [place] [address] Sandor, Nichole, OD [address] [place] [address] documented as of this encounter Visit Diagnoses Not on filedocumented in this encounter Additional Health Concerns Assessment Noted Time PHQ-9 Depression Total Score: 5 05/10/20 3:48 PM EDT documented as of this encounter Care Teams Paste Up Copy Camera Operator Relationship Specialty Start Date End Date Laurie Strickland MD [address] [place] [address] PCP - General Internal Medicine 03/15/23 documented as of this encounter
== END 2025-05-13 07:35 | disposition home or self-care (01) ==
LOC: HO.US 07:34
PROVIDERS: PCP Student in an Organized Health Care Education/Training Program; Visit Provider Student in an Organized Health Care Education/Training Program
DX: R10.11 Right upper quadrant pain (principal)
CPT/HCPCS: 76700

== ENCOUNTER → 2025-05-13 07:35 | Outpatient (BNV) | payer MEDICAID, SELFPAY | PROVIDERS: PCP Student in an Organized Health Care Education/Training Program; Visit Provider Radiology Diagnostic Radiology | DX: R16.0 Hepatomegaly, not elsewhere classified (principal); K76.0 Fatty (change of) liver, not elsewhere classified | CPT/HCPCS: 76700 ==